=== PATIENT | female | born 1990 | race Asian ===

== ENCOUNTER 2018-03-21 05:07 | Emergency (ER) | payer OTHER ==
[2018-03-21 05:32] LABS: BILIRUBIN,URINE NEGATIVE (NEGATIVE); GLUCOSE, URINE (UA) NEGATIVE (NEGATIVE); KETONES,URINE (UA) NEGATIVE (NEGATIVE); LEUKOCYTE ESTERASE, URINE TRACE (NEGATIVE); NITRITE,URINE NEGATIVE (NEGATIVE); OCCULT BLOOD,URINE LARGE (NEGATIVE); PH,URINE 6.5 PH (5.0-7.5); PROTEIN,URINE 100 mg/dL (NEGATIVE); UROBILINOGEN,URINE 0.2 (NORMAL) E.U./dL (NORMAL)
[2018-03-21 05:34] LABS: CLARITY,URINE CLEAR (CLEAR)
[2018-03-21 05:35] LABS: BACTERIA,URINE Rare /HPF (None Seen); RBC,URINE TNTC /HPF (0-5); SQUAMOUS EPITHELIAL CELL,UR NONE SEEN (<= Few)
[2018-03-21 06:15] LABS: BASOPHILS % (AUTO) 0.6 %; EOSINOPHILS # (AUTO) 0.2 10^3/uL (0.0-0.7); HGB - HEMOGLOBIN 12.4 g/dL (12.0-16.0); LYMPHOCYTES # (AUTO) 1.4 10^3/uL (1.5-3.5); LYMPHOCYTES % (AUTO) 28.3 %; MEAN CORPUSCULAR HEMOGLOBIN 28.4 pg (27.0-31.0); MEAN CORPUSCULAR HGB CONC 34.4 g/dL (32.0-36.0); MEAN CORPUSCULAR VOLUME 82.4 fL (81.0-99.0); MEAN PLATELET VOLUME 7.5 fL (7.9-10.8); MONOCYTES # (AUTO) 0.4 10^3/uL (0.0-1.0); MONOCYTES % (AUTO) 7.2 %; NEUTROPHILS # (AUTO) 3.1 10^3/uL (1.5-6.6); NEUTROPHILS % (AUTO) 60.9 %; PLT - PLATELET COUNT 272 10^3/uL (130-450); RED BLOOD COUNT 4.38 10^6/uL (4.20-5.40); RED CELL DISTRIBUTION WIDTH 12.1 % (12.0-15.0)
[2018-03-21 06:26] LABS: ALBUMIN 4.2 g/dL (3.2-5.5); ALBUMIN/GLOBULIN RATIO 1.4 (1.0-2.2); BILIRUBIN,TOTAL 0.5 mg/dL (0.2-1.0); CALCIUM 9.1 mg/dL (8.5-10.3); CREATININE 0.7 mg/dL (0.4-1.0); TOTAL PROTEIN 7.1 g/dL (6.7-8.2)
--- NOTE | 2018-03-21 06:41 | ED Physician Documentation ---
History of Present Illness - Stated complaint Stated Complaint: FEMALE - Chief complaint Chief Complaint: Abd Pain - Additonal information Additional information: 28-year-old female presents the emergency department with vaginal bleeding. The patient is status post a LEEP procedure 2 weeks ago and then started her period. The patient had vaginal bleeding after the procedure and her bleeding has worsened since starting her period. The patient reports heavy clots. The patient reports feeling dizzy. The patient denies any abdominal pain, vomiting or diarrhea. No relieving factors. No other associated symptoms symptoms are described as moderate Review of Systems Constitutional: reports: Fatigue. denies: Fever, Chills Eyes: denies: Discharge Ears: denies: Loss of hearing, Ear pain Nose: denies: Congestion Throat: denies: Sore throat Cardiac: denies: Chest pain / pressure Respiratory: denies: Cough GI: denies: Vomiting : reports: Vaginal bleeding, Irregular menses. denies: Dysuria Skin: denies: Rash Musculoskeletal: denies: Neck pain Neurologic: reports: Other (dizziness). denies: Syncope PD PAST MEDICAL HISTORY - Past Medical History Past Medical History: Yes Cardiovascular: None Respiratory: Asthma Neuro: None Endocrine/Autoimmune: None GI: None BAR HELPER: None : None HEENT: None Psych: None Musculoskeletal: None Derm: None - Past Surgical History Past Surgical History: Yes General: Other /BAR HELPER: section, LEEP (Cervical surgery) - Allergies Allergies/Adverse Reactions: Allergies Allergy/AdvReac Type Severity Reaction Status Date / Time No Known Drug Allergies Allergy Verified 03/21/18 05:19 - Social History Does the pt smoke?: No Smoking Status: Never smoker Does the pt drink ETOH?: No Does the pt have substance abuse?: No - Immunizations Immunizations are current?: Yes - POLST Patient has POLST: No PD ED PE NORMAL - General General: Alert and oriented X 3, No acute distress - HEENT HEENT: Atraumatic, PERRL, EOMI, Ears normal - Cardiac Cardiac: RRR, Strong equal pulses - Respiratory Respiratory: No respiratory distress - Female Female : Roving Sizer present (There was a moderate amount of blood in the vaginal vault and upon further inspection the patient pasted a large blood clot. I was unable to fully visualize the cervix secondary to the amount of blood in the vaginal vault.), Other - Derm Derm: Normal color - Extremities Extremities: No deformity - Neuro Neuro: Alert and oriented X 3, Normal speech Results - Vitals Vitals: Vital Signs - 24 hr 03/21/18 03/21/18 03/21/18 05:17 05:57 06:24 Temperature 36.2 C L Heart Rate 78 Respiratory 17 16 16 Rate Blood Pressure 121/71 O2 Saturation 100 Oxygen O2 Source Room air - Labs Labs: Laboratory Tests 03/21/18 03/21/18 03/21/18 05:20 06:12 06:12 WBC 5.0 RBC 4.38 Hgb 12.4 Hct 36.1 L MCV 82.4 MCH 28.4 MCHC 34.4 RDW 12.1 Plt Count 272 MPV 7.5 L Neut # (Auto) 3.1 Lymph # (Auto) 1.4 L Barren # (Auto) 0.4 Eos # (Auto) 0.2 Baso # (Auto) 0.0 Absolute Nucleated RBC 0.00 Nucleated RBC % 0.0 Sodium 135 Potassium 3.3 L Chloride 104 Carbon Dioxide 27 Anion Gap 4.0 L BUN 21 H Creatinine 0.7 Estimated GFR (MDRD) 99 Glucose 98 Calcium 9.1 Total Bilirubin 0.5 AST 16 ALT 12 Alkaline Phosphatase 44 Total Protein 7.1 Albumin 4.2 Globulin 2.9 Albumin/Globulin Ratio 1.4 Lipase 36 Urine Color RED/BLOODY Urine Clarity CLEAR Urine pH 6.5 Ur Specific [place] <=1.005 Urine Protein 100 H Urine Glucose (UA) NEGATIVE Urine Ketones NEGATIVE Urine Occult Blood LARGE H Urine Nitrite NEGATIVE Urine Bilirubin NEGATIVE Urine Urobilinogen 0.2 (NORMAL) Ur Leukocyte Esterase TRACE H Urine RBC TNTC H Urine WBC 4-5 Ur Squamous Epith Cells NONE SEEN Urine Bacteria Rare Ur Microscopic Review INDICATED Urine Culture Comments INDICATED PD MEDICAL DECISION MAKING - ED course ED course: 07:00 AM The case was turned over to Dr. Pryor for follow-up on the ultrasound and final disposition - Sepsis Event Vital Signs: Vital Signs - 24 hr 03/21/18 03/21/18 03/21/18 05:17 05:57 06:24 Temperature 36.2 C L Heart Rate 78 Respiratory 17 16 16 Rate Blood Pressure 121/71 O2 Saturation 100 Oxygen O2 Source Room air Departure - Departure Clinical Impression: Vaginal bleeding
[2018-03-21 07:34] LABS: HCG,QUALITATIVE BLOOD NEGATIVE
--- NOTE | 2018-03-21 07:56 | ED Physician Documentation ---
History of Present Illness - Stated complaint Stated Complaint: FEMALE - Chief complaint Chief Complaint: Abd Pain PD PAST MEDICAL HISTORY - Past Medical History Past Medical History: Yes Cardiovascular: None Respiratory: Asthma Neuro: None Endocrine/Autoimmune: None GI: None CLINIC CHARGE NURSE: None : None HEENT: None Psych: None Musculoskeletal: None Derm: None - Past Surgical History Past Surgical History: Yes General: Other /CLINIC CHARGE NURSE: section, LEEP (Cervical surgery) - Allergies Allergies/Adverse Reactions: Allergies Allergy/AdvReac Type Severity Reaction Status Date / Time No Known Drug Allergies Allergy Verified 03/21/18 05:19 - Social History Does the pt smoke?: No Smoking Status: Never smoker Does the pt drink ETOH?: No Does the pt have substance abuse?: No - Immunizations Immunizations are current?: Yes - POLST Patient has POLST: No Results - Vitals Vitals: Vital Signs - 24 hr 03/21/18 03/21/18 03/21/18 05:17 05:57 06:24 Temperature 36.2 C L Heart Rate 78 Respiratory 17 16 16 Rate Blood Pressure 121/71 O2 Saturation 100 03/21/18 03/21/18 06:57 10:09 Temperature Heart Rate 70 83 Respiratory 16 16 Rate Blood Pressure 120/77 O2 Saturation 99 100 Oxygen O2 Source Room air - Labs Labs: Microbiology 03/21/18 05:20 Urine Culture - Preliminary Urine,Clean Catch CULTURE IN PROGRESS. RESULTS TO FOLLOW. Laboratory Tests 03/21/18 03/21/18 03/21/18 05:20 06:12 06:12 WBC 5.0 RBC 4.38 Hgb 12.4 Hct 36.1 L MCV 82.4 MCH 28.4 MCHC 34.4 RDW 12.1 Plt Count 272 MPV 7.5 L Neut # (Auto) 3.1 Lymph # (Auto) 1.4 L Moca # (Auto) 0.4 Eos # (Auto) 0.2 Baso # (Auto) 0.0 Absolute Nucleated RBC 0.00 Nucleated RBC % 0.0 Sodium 135 Potassium 3.3 L Chloride 104 Carbon Dioxide 27 Anion Gap 4.0 L BUN 21 H Creatinine 0.7 Estimated GFR (MDRD) 99 Glucose 98 Calcium 9.1 Total Bilirubin 0.5 AST 16 ALT 12 Alkaline Phosphatase 44 Total Protein 7.1 Albumin 4.2 Globulin 2.9 Albumin/Globulin Ratio 1.4 Lipase 36 Serum HCG, Qual Urine Color RED/BLOODY Urine Clarity CLEAR Urine pH 6.5 Ur Specific [place] <=1.005 Urine Protein 100 H Urine Glucose (UA) NEGATIVE Urine Ketones NEGATIVE Urine Occult Blood LARGE H Urine Nitrite NEGATIVE Urine Bilirubin NEGATIVE Urine Urobilinogen 0.2 (NORMAL) Ur Leukocyte Esterase TRACE H Urine RBC TNTC H Urine WBC 4-5 Ur Squamous Epith Cells NONE SEEN Urine Bacteria Rare Ur Microscopic Review INDICATED Urine Culture Comments INDICATED 03/21/18 03/21/18 06:12 10:40 WBC RBC Hgb 13.1 Hct MCV MCH MCHC RDW Plt Count MPV Neut # (Auto) Lymph # (Auto) [place]oca # (Auto) Eos # (Auto) Baso # (Auto) Absolute Nucleated RBC Nucleated RBC % Sodium Potassium Chloride Carbon Dioxide Anion Gap BUN Creatinine Estimated GFR (MDRD) Glucose Calcium Total Bilirubin AST ALT Alkaline Phosphatase Total Protein Albumin Globulin Albumin/Globulin Ratio Lipase Serum HCG, Qual NEGATIVE Urine Color Urine Clarity Urine pH Ur Specific [place] Urine Protein Urine Glucose (UA) Urine Ketones Urine Occult Blood Urine Nitrite Urine Bilirubin Urine Urobilinogen Ur Leukocyte Esterase Urine RBC Urine WBC Ur Squamous Epith Cells Urine Bacteria Ur Microscopic Review Urine Culture Comments - Rads (name of study) pelvic sono Radiology: See rad report (neg) PD MEDICAL DECISION MAKING - ED course ED course: assumed care 7 AM 28 female to ER for heavy vag bleed s/p LEEP done at [facility] neg pelvic exam by instrument lens grinder showed large clot in cervix and blood in vault but per night EMP no active bleeding pt in [facility] when I first went to see her then in bathroom did examine her - RRR CTAB she states bleeding was spont - no injry, did not start after intercourse etc sono neg H/H WNL per Dr Davis no ongoing bleeding during his exam after large clot removed, just old blood in vault but later pt states that in the 5.5 hr she has been here she has had to change pads 5 times - and she is wearing 3 overnight pads at time and soaking through that requested CLINIC CHARGE NURSE to come eval CLINIC CHARGE NURSE came in and evaluated pt and she was bleeding from her LEEP site and CLINIC CHARGE NURSE cauterized the site and packed the vaginal vault pt may be dced with bleeding precautions and toxic shock precautions and is to return tomorrow 730 AM for packing removal - Sepsis Event Vital Signs: Vital Signs - 24 hr 03/21/18 03/21/18 03/21/18 05:17 05:57 06:24 Temperature 36.2 C L Heart Rate 78 Respiratory 17 16 16 Rate Blood Pressure 121/71 O2 Saturation 100 03/21/18 03/21/18 06:57 10:09 Temperature Heart Rate 70 83 Respiratory 16 16 Rate Blood Pressure 120/77 O2 Saturation 99 100 Oxygen O2 Source Room air Departure - Departure Disposition: 01 Home, Self Care Clinical Impression: Vaginal bleeding Condition: Good Instructions: ED Bleed Irregular Vaginal Follow-Up: [facility] [Provider Group] Comments: Your blood count is fine - you have not lost a dangerous amount of blood The test was negative And the ultrasound of the ovaries and uterus was fine But the CLINIC CHARGE NURSE found bleeding at the site of our LEEP procedure and this needed to be cauterized and packed. The CLINIC CHARGE NURSE says you can go home for today but cale to return t the ER tomorrow at 730 AM to have the packing removed If you are worse at any time - bleeding again, fever, rash, severe abdominal pain, feeling faint - have someone drive you straight back to the ER
--- NOTE | 2018-03-21 08:23 | Ultrasound Report ---
Reason: vaginal bleeding Procedure Date: 03/21/2018 Accession Number: [id number] / [id number] Procedure: US - Pelvic Complete CPT Code: FULL RESULT: EXAM: PELVIC ULTRASOUND EXAM DATE: 03/21/2018 07:28 AM. CLINICAL HISTORY: Vaginal bleeding. Negative hCG. COMPARISON: None. TECHNIQUE: Realtime transabdominal pelvic scan performed to identify the uterus and adnexa and as an overview of other pelvic structures, followed by transvaginal scan to provide greater detail of the uterus and adnexa, with static image documentation. FINDINGS: Uterus: 7.8 x 4.0 x 4.7 cm, volume 76.7 cc. Anteverted position. Normal overall size and echotexture. Masses: None. Endometrium: 5.8 mm. Normal. Cervix: Unremarkable. Right Ovary: 3.0 x 2.0 x 1.7 cm, volume 5.3 cc. Normal echotexture and blood flow. Left Ovary: Visualized only on transabdominal scan. 2.5 x 1.3 x 2.0 cm, volume 3.4 cc. Normal echotexture and blood flow. Free Fluid: None. Other: None. IMPRESSION: Essentially normal pelvic ultrasound. Limited visualization of left ovary which is seen only on transabdominal scanning. RADIA
[2018-03-21] MEDS ORDERED: FERRIC SUBSULFATE 8 ML SOLUTION (FOR OR) TOP ONE (12:09)
--- NOTE | 2018-03-21 12:24 | CONSULTATION NOTE ---
History of Present Illness - History of Present Illness HPI Comment/Other: Asked by ER MD to see this patient with excessive VB post LEEP. HPI: Had LEEP for HGSIL 12 days ago. VB was heavier starting 5d ago but not like this. Not sure when her menses started. Menses was due 03/19/18. Menses tends to be heaviest on the 2nd day, sometimes going through a super pad hourly but not soaked. Pt changes pads every time she urinates which is q1h duirng the daytime. 2d ago she saw her SLEEP TECHNOLOGIST MD in follow up--they saw oozing at her cautery site but no heavy bleeding. At 04:00 woke up with heavy bleeding, went to [facility] where she passed a lemon sized clot followed by sun'aq sized. VB persists, "3 super pads per hour". Contraception = none, was TTC, is now going to use condoms. No abd pain, no cramping, no fevers. [place] like she may have some foul odor but this stopped 2d ago and her doctor said it was normal at the exam. PMH: HGSIL bx per pt PSH: for failure to progress. LEEP. Allergies: NKDA Meds: PNV daily. Ibuprofen 2d ago. SH: occasional alcohol use. No tobacco or drugs. [place] , stay at home mom. FH: no anesthesia problems ROS: per above O: AVSS, Hct normal x2 , WBC normal, UPT neg Alert, smiling, NAD EFG normal. Vagina normal. Cervix with LEEP bed seen. Active bleeding from the 5:00 to 7:00 posterior lip of the vaginal margin. This was controlled with intermittent pressure with q-tip followed by silver nitrate application. Bleeding was very scant after this tx. Monsel's applied to a tampon and this was placed PV. Speculum was removed. Tolerated well. Pads examined. Pt using 3 at a time for coverage. But only one is wet and is not totally dripping soaked. A/P: postop complication from SLEEP TECHNOLOGIST surgery = bleeding from LEEP/vaginal margin. Bleeding controlled now after chemical cautery. --RTC tomorrow for tampon removal, I will recheck the LEEP bed then --RTC sooner PRN fevers, feeling ill, excessive VB --Pt reassured that her VB was excessive post LEEP but it is not at a concerning volume--her body should tolerate this amount of VB well--her HCT is normal she is not anemic --Continue pelvic rest. History - Past Medical History Cardiovascular: reports: None Respiratory: reports: Asthma Neuro: reports: None Endocrine/Autoimmune: reports: None GI: reports: None SLEEP TECHNOLOGIST: reports: None : reports: None HEENT: reports: None Psych: reports: None Musculoskeletal: reports: None Derm: reports: None MRSA Hx?: No - Past Surgical History General: reports: Other /SLEEP TECHNOLOGIST: reports: section, LEEP (Cervical surgery) - POLST Patient has POLST: No Meds/Allgy - Allergies Allergies/Adverse Reactions: Allergies Allergy/AdvReac Type Severity Reaction Status Date / Time No Known Drug Allergies Allergy Verified 03/21/18 05:19 Exam - Vital Signs Vital Signs: Vital Signs x48h Temp Pulse Resp BP Pulse Ox 03/21/18 10:09 83 16 120/77 100 03/21/18 06:57 70 16 99 03/21/18 06:24 16 03/21/18 05:57 16 03/21/18 05:17 97.2 F L 78 17 121/71 100 Conclusion/Plan - Diagnosis Diagnosis: Postoperative complication from SLEEP TECHNOLOGIST surgery - Lab Results Fish Bones: 03/21/18 10:40 03/21/18 06:12
[2018-03-21 12:38] VITALS: BP 113/82
== END 2018-03-21 12:41 | disposition home or self-care (01) ==
LOC: ED 05:07
DX: N99.820 Postprocedural hemorrhage of a genitourinary system organ or structure following a genitourinary system procedure (principal)
CPT/HCPCS: 36415; 57180; 76830; 76856; 80053; 81001; 81003; 81025; 83690; 84703; 85018; 85025; 87086; 87210; 99283

== ENCOUNTER 2018-03-22 07:33 | Emergency (ER) | payer OTHER ==
--- NOTE | 2018-03-22 07:50 | ED Physician Documentation ---
History of Present Illness - Stated complaint Stated Complaint: FEMALE - Chief complaint Chief Complaint: General - Additonal information Additional information: hx from pt 28 f not seen yesterday for vag bleeding from LEEP procedure site cauterized and packed by PASSENGER SERVICE REPRESENTATIVE yesterday returns as requested fr PASSENGER SERVICE REPRESENTATIVE to remove packing doing better no fever no rash no abd pain continued bleeding but slower Review of Systems Constitutional: denies: Fever GI: denies: Abdominal Pain, Nausea, Vomiting : reports: Vaginal bleeding. denies: Now EGA Endocrine: denies: Easy bruising / bleeding Immunocompromised: denies: Immunocompromised PD PAST MEDICAL HISTORY - Past Medical History Cardiovascular: None Respiratory: Asthma Neuro: None Endocrine/Autoimmune: None GI: None PASSENGER SERVICE REPRESENTATIVE: None : None HEENT: None Psych: None Musculoskeletal: None Derm: None - Past Surgical History Past Surgical History: Yes General: Other /PASSENGER SERVICE REPRESENTATIVE: section, LEEP (Cervical surgery) - Allergies Allergies/Adverse Reactions: Allergies Allergy/AdvReac Type Severity Reaction Status Date / Time No Known Drug Allergies Allergy Verified 03/21/18 05:19 - Social History Does the pt smoke?: No Smoking Status: Never smoker Does the pt drink ETOH?: No Does the pt have substance abuse?: No - Immunizations Immunizations are current?: Yes - POLST Patient has POLST: No PD ED PE NORMAL - Vitals Vital signs reviewed: Yes - Cardiac Cardiac: RRR - Respiratory Respiratory: No respiratory distress - Abdomen Abdomen: Soft, Non tender - Neuro Neuro: Alert and oriented X 3 Results - Vitals Vitals: Vital Signs - 24 hr 03/22/18 07:42 Temperature 36.4 C L Heart Rate 88 Respiratory 16 Rate Blood Pressure 129/97 H O2 Saturation 100 Oxygen O2 Source Room air PD MEDICAL DECISION MAKING - ED course ED course: pt seen by PASSENGER SERVICE REPRESENTATIVE again, packing removed, TXA applied, bleeding controlled - Sepsis Event Vital Signs: Vital Signs - 24 hr 03/22/18 07:42 Temperature 36.4 C L Heart Rate 88 Respiratory 16 Rate Blood Pressure 129/97 H O2 Saturation 100 Oxygen O2 Source Room air Departure - Departure Disposition: 01 Home, Self Care Clinical Impression: Vaginal bleeding Condition: Good Instructions: ED Bleed Irregular Vaginal Comments: Follow up with [employer] tomorrow as planned Return if worse (fever heavy bleeding, abdominal, feeling faint etc)
[2018-03-22] MEDS ORDERED: FERRIC SUBSULFATE 8 ML SOLUTION (FOR OR) TOP STA (07:52)
[2018-03-22] MEDS ORDERED: TRANEXAMIC ACID 1,000 MG/10 ML VIAL NAS STA (08:00)
--- NOTE | 2018-03-22 08:00 | CONSULTATION NOTE ---
History of Present Illness - History of Present Illness HPI Comment/Other: Here for FUV, see note yesterday. Feeling well, no fevers, not feeling ill. Tampon is uncomfortable. Had some bleeding around the tampon--filled 1 super pad in 6h overnight and then another in 4h. No pain. O: AVSS alert NAD The Monsels had created crusted clumps of blood and iron distal to the tampon. Created a lot of discomfort with this process. 30cc of viscous lidocaine were gradually instilled into the vagina around the tampon, which created mobility in the tampon. Speculum placed and clumps and tampon removed with a ring forcep. Very small ooze still from the 5:00 to 7:00. Silver nitrate was applied followed by TXA. This resulted in near-resolution of bleeding. While discharging patient she layed supine to keep as much TXA near the cervix as possible. A/P: postop complication from ROTOR CASTING MACHINE SETUP OPERATOR surgery (bleeding at junction between leep and normal tissue), resolving nicely with tx. --Not packed today --RTC tomorrow with her primary ROTOR CASTING MACHINE SETUP OPERATOR doc --If VB soaking through multiple super pads per hour then return to ER sooner. --Wet mount was neg yesterday. History - Past Medical History Cardiovascular: reports: None Respiratory: reports: Asthma Neuro: reports: None Endocrine/Autoimmune: reports: None GI: reports: None ROTOR CASTING MACHINE SETUP OPERATOR: reports: None : reports: None HEENT: reports: None Psych: reports: None Musculoskeletal: reports: None Derm: reports: None MRSA Hx?: No - Past Surgical History General: reports: Other /ROTOR CASTING MACHINE SETUP OPERATOR: reports: section, LEEP (Cervical surgery) - POLST Patient has POLST: No Meds/Allgy - Allergies Allergies/Adverse Reactions: Allergies Allergy/AdvReac Type Severity Reaction Status Date / Time No Known Drug Allergies Allergy Verified 03/21/18 05:19 Exam - Vital Signs Vital Signs: Vital Signs x48h Temp Pulse Resp BP Pulse Ox 03/22/18 07:42 97.5 F L 88 16 129/97 H 100
[2018-03-22] MEDS ORDERED: LIDOCAINE VISCOUS 2% 15 ML UDC MM STA ×2 (08:17→08:24)
[2018-03-22 09:52] VITALS: BP 120/77
== END 2018-03-22 09:54 | disposition home or self-care (01) ==
LOC: ED 07:33
DX: N99.820 Postprocedural hemorrhage of a genitourinary system organ or structure following a genitourinary system procedure (principal)
CPT/HCPCS: 99283

== ENCOUNTER 2019-03-08 13:17 | Emergency (ER) | payer OTHER ==
[2019-03-08 13:28] VITALS: BP 145/81
[2019-03-08 13:45] LABS: BILIRUBIN,URINE NEGATIVE (NEGATIVE); GLUCOSE, URINE (UA) NEGATIVE (NEGATIVE); KETONES,URINE (UA) NEGATIVE (NEGATIVE); LEUKOCYTE ESTERASE, URINE NEGATIVE (NEGATIVE); NITRITE,URINE NEGATIVE (NEGATIVE); OCCULT BLOOD,URINE NEGATIVE (NEGATIVE); PH,URINE 5.5 PH (5.0-7.5); PROTEIN,URINE NEGATIVE (NEGATIVE); UROBILINOGEN,URINE 0.2 (NORMAL) E.U./dL (NORMAL)
[2019-03-08 13:47] LABS: CLARITY,URINE CLEAR (CLEAR)
[2019-03-08 14:10] LABS: BASOPHILS % (AUTO) 0.2 %; EOSINOPHILS # (AUTO) 0.1 10^3/uL (0.0-0.7); EOSINOPHILS % (AUTO) 2.2 %; HGB - HEMOGLOBIN 14.3 g/dL (12.0-16.0); LYMPHOCYTES # (AUTO) 1.4 10^3/uL (1.5-3.5); LYMPHOCYTES % (AUTO) 26.4 %; MEAN CORPUSCULAR HEMOGLOBIN 29.7 pg (27.0-31.0); MEAN CORPUSCULAR HGB CONC 34.7 g/dL (32.0-36.0); MEAN CORPUSCULAR VOLUME 85.5 fL (81.0-99.0); MEAN PLATELET VOLUME 9.5 fL (7.9-10.8); MONOCYTES # (AUTO) 0.2 10^3/uL (0.0-1.0); MONOCYTES % (AUTO) 4.3 %; NEUTROPHILS # (AUTO) 3.6 10^3/uL (1.5-6.6); NEUTROPHILS % (AUTO) 66.5 %; PLT - PLATELET COUNT 221 10^3/uL (130-450); RED BLOOD COUNT 4.82 10^6/uL (4.20-5.40); RED CELL DISTRIBUTION WIDTH 11.6 % (12.0-15.0); WHITE BLOOD COUNT 5.4 x10^3/uL (4.8-10.8)
[2019-03-08 14:22] LABS: ALBUMIN 4.5 g/dL (3.2-5.5); ALBUMIN/GLOBULIN RATIO 1.4 (1.0-2.2); BILIRUBIN,TOTAL 0.5 mg/dL (0.2-1.0); CALCIUM 9.7 mg/dL (8.5-10.3); CREATININE 0.7 mg/dL (0.4-1.0); TOTAL PROTEIN 7.7 g/dL (6.7-8.2)
== END 2019-03-08 14:57 | disposition left against medical advice (07) ==
LOC: ED 13:17
DX: Z53.21 Procedure and treatment not carried out due to patient leaving prior to being seen by health care provider (principal)
CPT/HCPCS: 36415; 80053; 81001; 81003; 83690; 85025; 87086